=== PATIENT | male | born 1940 | race Caucasian/White ===

== ENCOUNTER 2020-03-10 12:45 | Emergency (ER) | payer MEDICARE, SELFPAY ==
[2020-03-10] VITALS (7 sets, daily range): BP systolic 112–147; BP diastolic 72–104; PULSE 105–127; RESP 22–23; TEMP 36.8–37.1; O2SAT 90–99; BMI 25.9
--- NOTE | 2020-03-10 13:06 | XR_ITS ---
EXAMINATION: XR CHEST CLINICAL INFORMATION: Weakness COMPARISON: Chest x-ray 10/17/2017 TECHNIQUE: Frontal view of the chest was obtained. FINDINGS: Lungs are clear. No focal consolidation or mass. Normal pulmonary vascularity. No pleural effusion or pneumothorax. Tortuous and/or ectatic aorta again seen, similar appearance to the prior study. Normal heart size. There are degenerative changes of the shoulders. XR/XR chest 1V IMPRESSION: No acute pulmonary disease. No significant change from prior study.
--- NOTE | 2020-03-10 13:06 | ECG_ITS ---
Test Reason : SYNCOPE Blood Pressure : / mmHG Vent. Rate : 105 BPM Atrial Rate : 105 BPM P-R Int : 124 ms QRS Dur : 094 ms QT Int : 372 ms P-R-T Axes : 008 007 -06 degrees QTc Int : 491 ms Sinus tachycardia Incomplete right bundle branch block Nonspecific T wave abnormality Inferior leads Anterior leads Abnormal ECG No previous ECGs available Referred By: Joseph West Electronically Signed By:DUSTIN FENG MD
--- NOTE | 2020-03-10 13:06 | CT_ITS ---
EXAMINATION: CT HEAD WITHOUT CONTRAST CLINICAL INFORMATION: Weakness, dizziness COMPARISON: 01/17/2017 TECHNIQUE: Contiguous axial imaging was performed from the skull base to vertex without intravenous administration of contrast. This CT examination was performed using dose optimization techniques as appropriate, variously including the following: *Automated exposure control *Adjustment of mA and/or kV according to patient size (this includes techniques or standardized protocols for targeted exams where dose is matched to indication/reason for exam; i.e. extremities or head) *Use of iterative reconstruction technique DLP: 792 mGy-cm FINDINGS: No intracranial hemorrhage. Again seen is a prominent left frontal extra-axial CSF space consistent with an arachnoid cyst. There is associated thinning and remodeling of the left frontal calvarium and mild mass effect on the left frontal cortex, previously as well. This measures 2.1 cm in AP dimension, not significantly changed from prior study. Otherwise, no mass effect or midline shift seen. The ventricles are similar in configuration to the prior study. Mild chronic microvascular white matter ischemic changes are seen, similar to prior. There is a CSF density remote lacunar infarct in the left basal ganglia. Senescent basal ganglia calcifications are present. There is a remote lacunar infarct in the anterior limb of the right internal capsule. No evidence of acute large vessel territory ischemia. 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 No acute sinusitis. The globes and orbits are normal. CT/CT head/brain wo con IMPRESSION: No acute intracranial abnormality. Similar appearance of left frontal convexity arachnoid cyst. Similar appearance of age-appropriate microvascular white matter ischemic changes and remote prior lacunar infarcts.
--- NOTE | 2020-03-10 13:06 | ED.WEAKNESS ---
HPI - Weakness General Chief complaint: Syncope <Luis Alberto Brooks MD - Last Filed: 03/10/20 16:51> Stated complaint: DIZZY AND WEAK TODAY , NEGATIVE STROKE SCALE <Luis Alberto Brooks MD - Last Filed: 03/10/20 16:51> Time Seen by Provider: 03/10/20 13:05 <Luis Alberto Brooks MD - Last Filed: 03/10/20 16:51> Source: EMS <Joseph West NP - Last Filed: 03/10/20 17:28> Mode of arrival: EMS <Joseph West NP - Last Filed: 03/10/20 17:28> Limitations: no limitations <Joseph West NP - Last Filed: 03/10/20 17:28> History of Present Illness HPI Narrative: This is a 79-year-old male with past medical history that is significant for enlarged prostate for which he is on finasteride and history of hypertension he is taking antihypertensive for a very long time aside from this he denies any other medical problems. He presents via EMS today after he has called his daughter to help him as he reports he woke up this morning with feeling generalized weakness. States he niall up at 8 am when to kitchen where he felt weak and return to his bed where he reports passed out in his bed for brief period time he states he awoke and he had defecated and urinated on himself states he got up went to the bathroom to clean/use the bathroom and felt very weak he sat down on the bathroom floor for a hour or so and then after EMS was called and patient brought to emergency room. Patient has no focal neurological findings. EKG for EMS was stable. Hemodynamically stable he is slightly tachy at 0105. He denies any pain or discomfort. No chest pain specifically or headache. He does report slight dizziness throughout the day and feeling weak. He otherwise denies any recent illness. <Joseph West NP - Last Filed: 03/10/20 17:28> Complaint: generalized weakness <Joseph West NP - Last Filed: 03/10/20 17:28> Onset (ago): hour(s) (woke up this am at 8- ) <Joseph West NP - Last Filed: 03/10/20 17:28> Duration: constant <Joseph West NP - Last Filed: 03/10/20 17:28> Location: generalized <Joseph West NP - Last Filed: 03/10/20 17:28> Associated symptoms: denies other symptoms <Joseph West NP - Last Filed: 03/10/20 17:28> Related Data Allergies/Adverse reactions: Allergies Allergy/AdvReac Type Severity Reaction Status Date / Time Statins Support Allergy Unknown Muscle Uncoded 03/10/20 13:06 cramps <Luis Alberto Brooks MD - Last Filed: 03/10/20 16:51> Review of Systems Review of Systems: Constitutional: No Weight loss, No Fever, No Chills, No Night Sweats, No Fatigue, No Malaise ENT/Mouth: No Hearing loss, No Ear Pain, No Nasal Congestion, No Sinus Pain, No Hoarseness, No sore throat, No Rhinorrhea, No Swallowing Difficulty Eyes: No Eye Pain, No Swelling, No Redness, No Foreign Body, No Discharge, No Vision Changes Cardiovascular: No Chest Pain, No SOB, No Dyspnea on Exertion, No Orthopnea, No Edema, No Palpitations Respiratory: No Cough, No Sputum, No Wheezing, No Smoke Exposure, No Dyspnea Gastrointestinal: No Nausea, No Vomiting, No Diarrhea, No Constipation, No abdominal Pain, No Hematochezia, No Melena Genitourinary: no irregular bleeding, No Dysuria, No Urinary Frequency, No Hematuria, No Urinary Incontinence, No Urgency, No Flank Pain, No Urinary Flow Changes, No Hesitancy Musculoskeletal: No joint pain, No Myalgias, No Joint Swelling Skin: No Skin Lesions, No rash Neuro: No Weakness, No Numbness, No Paresthesias, No Loss of Consciousness, + Dizziness, No Headache, + generalized weakness Psych: No Anxiety/Panic, No Depression, No SI/HI/AH/VH, No Social Issues, Heme/Lymph: No Bruising, No Bleeding,No Lymphadenopathy Endocrine: No Polyuria, No Polydipsia, No Temperature Intolerance <Joseph West NP - Last Filed: 03/10/20 17:28> Yes all other systems are reviewed and are negative <Joseph West NP - Last Filed: 03/10/20 17:28> [facility] Past Medical History Medical History: Medical History Enlarged prostate HTN (hypertension) <Luis Alberto Brooks MD - Last Filed: 03/10/20 16:51> Social History Social History: Social History Alcohol intake: unknown Smoking Status: Never smoker Smoked in Last 30 Days: No Use of substances other than those prescribed or required for medical reasons: No Advance Directives: No Advance Directives Information Provided: No <Luis Alberto Brooks MD - Last Filed: 03/10/20 16:51> Physical Exam Vital Signs: Vital Signs: Last Vital Signs Temp 98.3 F 03/10/20 13:25 Pulse 106 H 03/10/20 13:25 Resp 22 H 03/10/20 13:25 BP 121/95 H 03/10/20 13:25 Pulse Ox 95 03/10/20 13:25 Body Mass Index 25.9 <Luis Alberto Brooks MD - Last Filed: 03/10/20 16:51> Vital Signs: Last Vital Signs Temp 98.3 F 03/10/20 13:25 Pulse 106 H 03/10/20 13:25 Resp 22 H 03/10/20 13:25 BP 121/95 H 03/10/20 13:25 Pulse Ox 95 03/10/20 13:25 Body Mass Index 25.9 Reviewed <Joseph West NP - Last Filed: 03/10/20 17:28> Const: General: cooperative and healthy appearing; No acute distress or intoxicated appearing <Joseph West NP - Last Filed: 03/10/20 17:28> Nutritional Appearance: average body habitus <Joseph West NP - Last Filed: 03/10/20 17:28> Orientation/consciousness: patient oriented x3 <Joseph West NP - Last Filed: 03/10/20 17:28> HENMT: Head: Yes normal to inspection <Joseph West NP - Last Filed: 03/10/20 17:28> Ears: hearing grossly normal bilaterally <Joseph West NP - Last Filed: 03/10/20 17:28> Eyes: General: appearance normal, both eyes and all related structures <Joseph West, CCNP - Last Filed: 03/10/20 17:28> Visual Dale: normal visual dale by confrontation <[facility], CCNP - Last Filed: 03/10/20 17:28> Neck: Neck: Yes normal visual inspection, No positive Brudzinski's sign, No positive Kernig's sign and No tender <[facility] CCNP - Last Filed: 03/10/20 17:28> Thyroid: Thyroid normal [facility] - Last Filed: 03/10/20 17:28> Chest: Chest palpation & inspection: normal inspection of the chest <[facility], CCNP - Last Filed: 03/10/20 17:28> Resp: Effort & Inspection: normal respiratory effort <[facility], CCNP - Last Filed: 03/10/20 17:28> Cardio: Jugular venous distension: no JVD <[facility], CCNP - Last Filed: 03/10/20 17:28> Rate: tachycardic (105) <[facility], CCNP - Last Filed: 03/10/20 17:28> GI: Inspection: Yes normal to inspection <[facility], CCNP - Last Filed: 03/10/20 17:28> Percussion: Yes normal to percussion [facility] - Last Filed: 03/10/20 17:28> Auscultation: normal bowel sounds <[facility], CCNP - Last Filed: 03/10/20 17:28> : General: Yes no CVA tenderness <[facility] Brett CCNP - Last Filed: 03/10/20 17:28> Back/Spine/Pelvis: Back: no CVA tenderness [facility] - Last Filed: 03/10/20 17:28> Skin: General skin exam: no rashes or lesions noted <[facility] Brett CCNP - Last Filed: 03/10/20 17:28> Neuro: Other: NIH score 0 PERC positive based on age in tachycardia <[facility] CCNP - Last Filed: 03/10/20 17:28> General: patient oriented x3 <[facility] CCNP - Last Filed: 03/10/20 17:28> Extrem: General: Yes normal to inspection <Joseph West NP - Last Filed: 03/10/20 17:28> Course Course Course Narrative: I agree with the history. My physical exam is male coding, CPR in progress, patient intubated, CPR stopped as pulses returned. Will start epi drip <Luis Alberto Brooks MD - Last Filed: 03/10/20 16:51> Interview 79-year-old male who is relatively independent lives at home alone with history of enlarged prostate and hypertension presenting today with complaint of generalized weakness with with what is described as syncopal episode where he passed out in his bed and had lost control of his urinary/bowels. He subsequently felt weak again set on the bathroom floor for an hour or so and then EMS was called. Upon arrival reports slight generalized weakness otherwise no chest pain or shortness of breath no headache does report slight dizziness improved from this morning. He states otherwise he has been doing well and has not had any travels, sick contacts, episodes of chest pain, headache or shortness of breath. He does report that he did do extensive yd work yesterday but most of it involved him riding on his riding lawnmower and picking up leaves. Upon arrival patient is slightly tachy at 105 otherwise hemodynamically stable. No complaint of pain. Does have complaint of generalized weakness. Bedside monitor shows sinus tachycardic EKG on arrival slight tacky as well with RBBB and T-wave inversion in lateral leads. At this time will check labs including CT of the head, chest x-ray, orthostatic vital signs and COVID-19. Differential diagnosis include but not limited to CVA, TIA, ACS, pulmonary embolism, viral syndrome. <Joseph West NP - Last Filed: 03/10/20 17:28> Reevaluation(s) Reevaluation #1: Proper hand hygiene, cap, gown and sterile gloves place worn. Patient prepped and draped in sterile fashion, 1% lidocaine used for anesthesia, sterile US cover used, central line placed using US. Central line 16cm at the neck. Sutured in place <Luis Alberto Brooks MD - Last Filed: 03/10/20 16:51> Patient was resting comfortably and hemodynamically stable went to CT scan of his head and after he had a CT scan done patient was moved into his stretcher and after he was being wheeled back to his room he became unresponsive with agonal breathing I was called over to bedside. Found patient to have rhythm that was progressively going to bradycardic with no pulses. CPR was initiated and patient remained PA for about 5 minutes. Patient was given round of epi. He regained consciousness and appeared uncomfortable from the compressions on his chest reporting pain in the ?ribs? bedside rhythm revealed tachycardia with frequent PVC. He denies any chest pain or shortness of breath or headache prior to this and no headache. Soon after this he again went into agonal breathing and bedside monitor revealed heart rhythm went from 130's tachy down to 40s no pulse and CPR was initiated again. Patient was intubated following RSI protocol for airway protection and CPR continued again for about 8 times again - requiring multiple rounds of epinephrine and epinephrine drip. In the meantime I was in consultation with attending Dr. Brooks who was at bedside with me duration of the time, medicaid specialist Dr. Moore as well as Cardiology Dr. Mcgee. In addition to this daughter Mary was present for the duration of these episodes and closely consulted as to the wishes per the family given that patient is in critical condition with grim prognosis- she did express that at this time she wanted to continue CPR until she consult with her brother and sister but patient had mention that he did not want any invasive procedures in the prior discussions however there is no formal documentation of this. Given his workup that revealed elevated troponin and elevated D-dimer high suspicion for PE daughter agree to tPA with understanding that could lead to worsening condition bleeding and . This was reviewed with her by both myself Cardiology and medicaid specialist. Patient subsequently continued to have episodes of PE a requiring CPR and was determined by the family to stop CPR. Please refer to their documentation for duration of the code which lasted from 1300-16 20. Total over 2-1/2 hours were spent at bedside performing critical care including intubation by me, central line and management of multiple critical care medications. Patient was pronounced at 1620 by medicaid specialist. <Joseph West NP - Last Filed: 03/10/20 17:28> Consultations Consultation #1: [id number] Moore <Joseph West NP - Last Filed: 03/10/20 17:28> Consultation #2: [id number] Everardo Bedside Echo <Joseph West NP - Last Filed: 03/10/20 17:28> Procedures Intubation Time out performed: Yes <Joseph West NP - Last Filed: 03/10/20 17:28> sedative: Versed <Joseph West NP - Last Filed: 03/10/20 17:28> paralytic: Succinylcholine <Joseph West NP - Last Filed: 03/10/20 17:28> Laryngoscope: fiber optic video scope <Joseph West NP - Last Filed: 03/10/20 17:28> ET Tube Size: 8 <Joseph West NP - Last Filed: 03/10/20 17:28> ET Tube Uncuffed: Yes <Joseph West NP - Last Filed: 03/10/20 17:28> Tube Secured Depth (cm): 24 <Joseph West NP - Last Filed: 03/10/20 17:28> Tube Secured Location: lips <Joseph West NP - Last Filed: 03/10/20 17:28> Tube Placement Confirmation: visualized tube passing through cords, equal breath sounds bilaterally and confirmation by capnometry <Joseph West NP - Last Filed: 03/10/20 17:28> Patient Tolerated Procedure: well <Joseph West NP - Last Filed: 03/10/20 17:28> Intubation Complications: none <Joseph West NP - Last Filed: 03/10/20 17:28> Pulse Oximetry Interpretation Forehead: Actions Taken: intubated <Joseph West NP - Last Filed: 03/10/20 17:28> Additional Comments: 98% <Joseph West NP - Last Filed: 03/10/20 17:28> MDM - Weakness Medical Records Attestation: I reviewed the patient's medical records. <Joseph West NP - Last Filed: 03/10/20 17:28> Lab Data Attestation: I reviewed the patient's lab results. <Joseph West NP - Last Filed: 03/10/20 17:28> Result diagrams: : 03/10/20 13:44 03/10/20 13:44 <Luis Alberto Brooks MD - Last Filed: 03/10/20 16:51> Labs: Lab Results 03/10/20 03/10/20 03/10/20 Range/Units 13:44 13:44 13:44 WBC 10.3 (4.8-10.8) X10*3/uL RBC 4.63 (4.60-5.80) X10*6/uL Hgb 15.3 (14.0-18.0) g/dl Hct 45.7 (42-52) % MCV 98.7 H (80-98) fL MCH 33.0 (27.0-33.0) pg MCHC 33.5 (31.0-36.0) g/dl RDW 12.3 (11.0-16.0) % Plt Count 190 (160-400) X10*3/uL MPV 8.6 L (9.4-12.4) fL Immature Gran % (Auto) 0.4 (0.0-0.4) % Neut % (Auto) 89.6 H (45-73) % Lymph % (Auto) 5.4 L (20-40) % [place] % (Auto) 4.0 (2-11) % Eos % (Auto) 0.1 (0-4) % Baso % (Auto) 0.5 (0-2) % Lymph # (Auto) 0.6 L (1.2-4.9) X10*3/uL [place] # (Auto) 0.4 (0.1-1.2) X10*3/uL Eos # (Auto) 0.0 (0.0-0.4) X10*3/uL Baso # (Auto) 0.1 (0.0-0.2) X10*3/uL Abs Immat Gran (auto) 0.04 H (0.00-0.03) X10*3/uL Absolute Neuts (auto) 9.2 H (2.0-8.3) X10*3/uL Absolute Nucleated RBC 0.000 (0.0-0.012) X10*3/uL Nucleated RBC % (auto) 0.0 (0.0-0.2) /100WBC Smear Tech's Comments VERIFIED PT 12.4 (10.8-13.0) SEC INR 1.0 (0.9-1.1) APTT 29.7 (24.1-38.0) SEC D-Dimer NG/ML Sodium 140 (135-145) mmol/L Potassium 4.6 (3.3-5.1) mmol/l Chloride 105 (96-108) mmol/L Carbon Dioxide 24 (22-29) mmol/L Anion Gap 16 (12-20) BUN 14 (9-16) mg/dL Creatinine 0.97 (0.5-1.4) mg/dL Estim Creat Clear Calc 60.7 Estimated GFR > 60 POC Glucose (60-115) mg/dL Random Glucose 144 H (60-115) mg/dL Calcium 8.7 (8.4-10.2) mg/dL Magnesium 2.2 (1.6-2.6) mg/dL Total Bilirubin 0.8 (0.0-1.0) mg/dL AST 32 (5-37) U/L ALT 21 (0-40) U/L Alkaline Phosphatase 120 H (39-117) U/L Lactate Dehydrogenase (118-273) U/L Troponin I High Sens (<3.5-35.0) ng/L Total Protein 7.1 (6.5-8.0) g/dL Albumin 4.2 (3.5-5.0) g/dL Procalcitonin ng/mL COVID-19 ([facility]) (Negative) COVID-19 Clin Com 03/10/20 03/10/20 03/10/20 Range/Units 13:44 13:44 13:44 WBC (4.8-10.8) X10*3/uL RBC (4.60-5.80) X10*6/uL Hgb (14.0-18.0) g/dl Hct (42-52) % MCV (80-98) fL MCH (27.0-33.0) pg MCHC (31.0-36.0) g/dl RDW (11.0-16.0) % Plt Count (160-400) X10*3/uL MPV (9.4-12.4) fL Immature Gran % (Auto) (0.0-0.4) % Neut % (Auto) (45-73) % Lymph % (Auto) (20-40) % [place] % (Auto) (2-11) % Eos % (Auto) (0-4) % Baso % (Auto) (0-2) % Lymph # (Auto) (1.2-4.9) X10*3/uL [place] # (Auto) (0.1-1.2) X10*3/uL Eos # (Auto) (0.0-0.4) X10*3/uL Baso # (Auto) (0.0-0.2) X10*3/uL Abs Immat Gran (auto) (0.00-0.03) X10*3/uL Absolute Neuts (auto) (2.0-8.3) X10*3/uL Absolute Nucleated RBC (0.0-0.012) X10*3/uL Nucleated RBC % (auto) (0.0-0.2) /100WBC Smear Tech's Comments PT (10.8-13.0) SEC INR (0.9-1.1) APTT (24.1-38.0) SEC D-Dimer 2355 NG/ML Sodium (135-145) mmol/L Potassium (3.3-5.1) mmol/l Chloride (96-108) mmol/L Carbon Dioxide (22-29) mmol/L Anion Gap (12-20) BUN (9-16) mg/dL Creatinine (0.5-1.4) mg/dL Estim Creat Clear Calc Estimated GFR POC Glucose (60-115) mg/dL Random Glucose (60-115) mg/dL Calcium (8.4-10.2) mg/dL Magnesium (1.6-2.6) mg/dL Total Bilirubin (0.0-1.0) mg/dL AST (5-37) U/L ALT (0-40) U/L Alkaline Phosphatase (39-117) U/L Lactate Dehydrogenase (118-273) U/L Troponin I High Sens 818.4 H (<3.5-35.0) ng/L Total Protein (6.5-8.0) g/dL Albumin (3.5-5.0) g/dL Procalcitonin ng/mL COVID-19 ([facility]) Negative (Negative) COVID-19 Clin Com See Note 03/10/20 03/10/20 03/10/20 Range/Units 13:44 13:44 14:22 WBC (4.8-10.8) X10*3/uL RBC (4.60-5.80) X10*6/uL Hgb (14.0-18.0) g/dl Hct (42-52) % MCV (80-98) fL MCH (27.0-33.0) pg MCHC (31.0-36.0) g/dl RDW (11.0-16.0) % Plt Count (160-400) X10*3/uL MPV (9.4-12.4) fL Immature Gran % (Auto) (0.0-0.4) % Neut % (Auto) (45-73) % Lymph % (Auto) (20-40) % [place] % (Auto) (2-11) % Eos % (Auto) (0-4) % Baso % (Auto) (0-2) % Lymph # (Auto) (1.2-4.9) X10*3/uL [place] # (Auto) (0.1-1.2) X10*3/uL Eos # (Auto) (0.0-0.4) X10*3/uL Baso # (Auto) (0.0-0.2) X10*3/uL Abs Immat Gran (auto) (0.00-0.03) X10*3/uL Absolute Neuts (auto) (2.0-8.3) X10*3/uL Absolute Nucleated RBC (0.0-0.012) X10*3/uL Nucleated RBC % (auto) (0.0-0.2) /100WBC Smear Tech's Comments PT (10.8-13.0) SEC INR (0.9-1.1) APTT (24.1-38.0) SEC D-Dimer NG/ML Sodium (135-145) mmol/L Potassium (3.3-5.1) mmol/l Chloride (96-108) mmol/L Carbon Dioxide (22-29) mmol/L Anion Gap (12-20) BUN (9-16) mg/dL Creatinine (0.5-1.4) mg/dL Estim Creat Clear Calc Estimated GFR POC Glucose 115 (60-115) mg/dL Random Glucose (60-115) mg/dL Calcium (8.4-10.2) mg/dL Magnesium (1.6-2.6) mg/dL Total Bilirubin (0.0-1.0) mg/dL AST (5-37) U/L ALT (0-40) U/L Alkaline Phosphatase (39-117) U/L Lactate Dehydrogenase 284 H (118-273) U/L Troponin I High Sens (<3.5-35.0) ng/L Total Protein (6.5-8.0) g/dL Albumin (3.5-5.0) g/dL Procalcitonin 0.03 ng/mL COVID-19 ([facility]) (Negative) COVID-19 Clin Com 03/10/20 Range/Units 14:40 WBC (4.8-10.8) X10*3/uL RBC (4.60-5.80) X10*6/uL Hgb (14.0-18.0) g/dl Hct (42-52) % MCV (80-98) fL MCH (27.0-33.0) pg MCHC (31.0-36.0) g/dl RDW (11.0-16.0) % Plt Count (160-400) X10*3/uL MPV (9.4-12.4) fL Immature Gran % (Auto) (0.0-0.4) % Neut % (Auto) (45-73) % Lymph % (Auto) (20-40) % [place] % (Auto) (2-11) % Eos % (Auto) (0-4) % Baso % (Auto) (0-2) % Lymph # (Auto) (1.2-4.9) X10*3/uL [place] # (Auto) (0.1-1.2) X10*3/uL Eos # (Auto) (0.0-0.4) X10*3/uL Baso # (Auto) (0.0-0.2) X10*3/uL Abs Immat Gran (auto) (0.00-0.03) X10*3/uL Absolute Neuts (auto) (2.0-8.3) X10*3/uL Absolute Nucleated RBC (0.0-0.012) X10*3/uL Nucleated RBC % (auto) (0.0-0.2) /100WBC Smear Tech's Comments PT (10.8-13.0) SEC INR (0.9-1.1) APTT (24.1-38.0) SEC D-Dimer NG/ML Sodium (135-145) mmol/L Potassium (3.3-5.1) mmol/l Chloride (96-108) mmol/L Carbon Dioxide (22-29) mmol/L Anion Gap (12-20) BUN (9-16) mg/dL Creatinine (0.5-1.4) mg/dL Estim Creat Clear Calc Estimated GFR POC Glucose 154 H (60-115) mg/dL Random Glucose (60-115) mg/dL Calcium (8.4-10.2) mg/dL Magnesium (1.6-2.6) mg/dL Total Bilirubin (0.0-1.0) mg/dL AST (5-37) U/L ALT (0-40) U/L Alkaline Phosphatase (39-117) U/L Lactate Dehydrogenase (118-273) U/L Troponin I High Sens (<3.5-35.0) ng/L Total Protein (6.5-8.0) g/dL Albumin (3.5-5.0) g/dL Procalcitonin ng/mL COVID-19 ([facility]) (Negative) COVID-19 Clin Com <Luis Alberto Brooks MD - Last Filed: 03/10/20 16:51> Lab Results 03/10/20 03/10/20 03/10/20 Range/Units 13:44 13:44 13:44 WBC 10.3 (4.8-10.8) X10*3/uL RBC 4.63 (4.60-5.80) X10*6/uL Hgb 15.3 (14.0-18.0) g/dl Hct 45.7 (42-52) % MCV 98.7 H (80-98) fL MCH 33.0 (27.0-33.0) pg MCHC 33.5 (31.0-36.0) g/dl RDW 12.3 (11.0-16.0) % Plt Count 190 (160-400) X10*3/uL MPV 8.6 L (9.4-12.4) fL Immature Gran % (Auto) 0.4 (0.0-0.4) % Neut % (Auto) 89.6 H (45-73) % Lymph % (Auto) 5.4 L (20-40) % [place] % (Auto) 4.0 (2-11) % Eos % (Auto) 0.1 (0-4) % Baso % (Auto) 0.5 (0-2) % Lymph # (Auto) 0.6 L (1.2-4.9) X10*3/uL [place] # (Auto) 0.4 (0.1-1.2) X10*3/uL Eos # (Auto) 0.0 (0.0-0.4) X10*3/uL Baso # (Auto) 0.1 (0.0-0.2) X10*3/uL Abs Immat Gran (auto) 0.04 H (0.00-0.03) X10*3/uL Absolute Neuts (auto) 9.2 H (2.0-8.3) X10*3/uL Absolute Nucleated RBC 0.000 (0.0-0.012) X10*3/uL Nucleated RBC % (auto) 0.0 (0.0-0.2) /100WBC Smear Tech's Comments VERIFIED PT 12.4 (10.8-13.0) SEC INR 1.0 (0.9-1.1) APTT 29.7 (24.1-38.0) SEC D-Dimer NG/ML Sodium 140 (135-145) mmol/L Potassium 4.6 (3.3-5.1) mmol/l Chloride 105 (96-108) mmol/L Carbon Dioxide 24 (22-29) mmol/L Anion Gap 16 (12-20) BUN 14 (9-16) mg/dL Creatinine 0.97 (0.5-1.4) mg/dL Estim Creat Clear Calc 60.7 Estimated GFR > 60 POC Glucose (60-115) mg/dL Random Glucose 144 H (60-115) mg/dL Calcium 8.7 (8.4-10.2) mg/dL Magnesium 2.2 (1.6-2.6) mg/dL Total Bilirubin 0.8 (0.0-1.0) mg/dL AST 32 (5-37) U/L ALT 21 (0-40) U/L Alkaline Phosphatase 120 H (39-117) U/L Lactate Dehydrogenase (118-273) U/L Troponin I High Sens (<3.5-35.0) ng/L Total Protein 7.1 (6.5-8.0) g/dL Albumin 4.2 (3.5-5.0) g/dL Procalcitonin ng/mL COVID-19 ([facility]) (Negative) COVID-19 Clin Com 03/10/20 03/10/20 03/10/20 Range/Units 13:44 13:44 13:44 WBC (4.8-10.8) X10*3/uL RBC (4.60-5.80) X10*6/uL Hgb (14.0-18.0) g/dl Hct (42-52) % MCV (80-98) fL MCH (27.0-33.0) pg MCHC (31.0-36.0) g/dl RDW (11.0-16.0) % Plt Count (160-400) X10*3/uL MPV (9.4-12.4) fL Immature Gran % (Auto) (0.0-0.4) % Neut % (Auto) (45-73) % Lymph % (Auto) (20-40) % [place] % (Auto) (2-11) % Eos % (Auto) (0-4) % Baso % (Auto) (0-2) % Lymph # (Auto) (1.2-4.9) X10*3/uL [place] # (Auto) (0.1-1.2) X10*3/uL Eos # (Auto) (0.0-0.4) X10*3/uL Baso # (Auto) (0.0-0.2) X10*3/uL Abs Immat Gran (auto) (0.00-0.03) X10*3/uL Absolute Neuts (auto) (2.0-8.3) X10*3/uL Absolute Nucleated RBC (0.0-0.012) X10*3/uL Nucleated RBC % (auto) (0.0-0.2) /100WBC Smear Tech's Comments PT (10.8-13.0) SEC INR (0.9-1.1) APTT (24.1-38.0) SEC D-Dimer 2355 NG/ML Sodium (135-145) mmol/L Potassium (3.3-5.1) mmol/l Chloride (96-108) mmol/L Carbon Dioxide (22-29) mmol/L Anion Gap (12-20) BUN (9-16) mg/dL Creatinine (0.5-1.4) mg/dL Estim Creat Clear Calc Estimated GFR POC Glucose (60-115) mg/dL Random Glucose (60-115) mg/dL Calcium (8.4-10.2) mg/dL Magnesium (1.6-2.6) mg/dL Total Bilirubin (0.0-1.0) mg/dL AST (5-37) U/L ALT (0-40) U/L Alkaline Phosphatase (39-117) U/L Lactate Dehydrogenase (118-273) U/L Troponin I High Sens 818.4 H (<3.5-35.0) ng/L Total Protein (6.5-8.0) g/dL Albumin (3.5-5.0) g/dL Procalcitonin ng/mL COVID-19 ([facility]) Negative (Negative) COVID-19 Clin Com See Note 03/10/20 03/10/20 03/10/20 Range/Units 13:44 13:44 14:22 WBC (4.8-10.8) X10*3/uL RBC (4.60-5.80) X10*6/uL Hgb (14.0-18.0) g/dl Hct (42-52) % MCV (80-98) fL MCH (27.0-33.0) pg MCHC (31.0-36.0) g/dl RDW (11.0-16.0) % Plt Count (160-400) X10*3/uL MPV (9.4-12.4) fL Immature Gran % (Auto) (0.0-0.4) % Neut % (Auto) (45-73) % Lymph % (Auto) (20-40) % [place] % (Auto) (2-11) % Eos % (Auto) (0-4) % Baso % (Auto) (0-2) % Lymph # (Auto) (1.2-4.9) X10*3/uL [place] # (Auto) (0.1-1.2) X10*3/uL Eos # (Auto) (0.0-0.4) X10*3/uL Baso # (Auto) (0.0-0.2) X10*3/uL Abs Immat Gran (auto) (0.00-0.03) X10*3/uL Absolute Neuts (auto) (2.0-8.3) X10*3/uL Absolute Nucleated RBC (0.0-0.012) X10*3/uL Nucleated RBC % (auto) (0.0-0.2) /100WBC Smear Tech's Comments PT (10.8-13.0) SEC INR (0.9-1.1) APTT (24.1-38.0) SEC D-Dimer NG/ML Sodium (135-145) mmol/L Potassium (3.3-5.1) mmol/l Chloride (96-108) mmol/L Carbon Dioxide (22-29) mmol/L Anion Gap (12-20) BUN (9-16) mg/dL Creatinine (0.5-1.4) mg/dL Estim Creat Clear Calc Estimated GFR POC Glucose 115 (60-115) mg/dL Random Glucose (60-115) mg/dL Calcium (8.4-10.2) mg/dL Magnesium (1.6-2.6) mg/dL Total Bilirubin (0.0-1.0) mg/dL AST (5-37) U/L ALT (0-40) U/L Alkaline Phosphatase (39-117) U/L Lactate Dehydrogenase 284 H (118-273) U/L Troponin I High Sens (<3.5-35.0) ng/L Total Protein (6.5-8.0) g/dL Albumin (3.5-5.0) g/dL Procalcitonin 0.03 ng/mL COVID-19 ([facility]) (Negative) COVID-19 Clin Com 03/10/20 Range/Units 14:40 WBC (4.8-10.8) X10*3/uL RBC (4.60-5.80) X10*6/uL Hgb (14.0-18.0) g/dl Hct (42-52) % MCV (80-98) fL MCH (27.0-33.0) pg MCHC (31.0-36.0) g/dl RDW (11.0-16.0) % Plt Count (160-400) X10*3/uL MPV (9.4-12.4) fL Immature Gran % (Auto) (0.0-0.4) % Neut % (Auto) (45-73) % Lymph % (Auto) (20-40) % [place] % (Auto) (2-11) % Eos % (Auto) (0-4) % Baso % (Auto) (0-2) % Lymph # (Auto) (1.2-4.9) X10*3/uL [place] # (Auto) (0.1-1.2) X10*3/uL Eos # (Auto) (0.0-0.4) X10*3/uL Baso # (Auto) (0.0-0.2) X10*3/uL Abs Immat Gran (auto) (0.00-0.03) X10*3/uL Absolute Neuts (auto) (2.0-8.3) X10*3/uL Absolute Nucleated RBC (0.0-0.012) X10*3/uL Nucleated RBC % (auto) (0.0-0.2) /100WBC Smear Tech's Comments PT (10.8-13.0) SEC INR (0.9-1.1) APTT (24.1-38.0) SEC D-Dimer NG/ML Sodium (135-145) mmol/L Potassium (3.3-5.1) mmol/l Chloride (96-108) mmol/L Carbon Dioxide (22-29) mmol/L Anion Gap (12-20) BUN (9-16) mg/dL Creatinine (0.5-1.4) mg/dL Estim Creat Clear Calc Estimated GFR POC Glucose 154 H (60-115) mg/dL Random Glucose (60-115) mg/dL Calcium (8.4-10.2) mg/dL Magnesium (1.6-2.6) mg/dL Total Bilirubin (0.0-1.0) mg/dL AST (5-37) U/L ALT (0-40) U/L Alkaline Phosphatase (39-117) U/L Lactate Dehydrogenase (118-273) U/L Troponin I High Sens (<3.5-35.0) ng/L Total Protein (6.5-8.0) g/dL Albumin (3.5-5.0) g/dL Procalcitonin ng/mL COVID-19 ([facility]) (Negative) COVID-19 Clin Com <Joseph West NP - Last Filed: 03/10/20 17:28> Discharge Plan Discharge Clinical Impression: Cardiac arrest, Syncope <Luis Alberto Brooks MD - Last Filed: 03/10/20 16:51> Patient Disposition: <Luis Alberto Brooks MD - Last Filed: 03/10/20 16:51> Date/Time: 03/10/20 16:20 <Luis Alberto Brooks MD - Last Filed: 03/10/20 16:51>
[2020-03-10] MEDS: 0.9 % Sodium Chloride 500 ML 1000 ML IV (13:52)
[2020-03-10 13:56] LABS: Basophils Absolute Auto 0.1 X10*3/uL (0.0-0.2); Basophils Percent Auto 0.5 % (0-2); Eosinophils Percent Auto 0.1 % (0-4); Hematocrit 45.7 % (42-52); Hemoglobin 15.3 g/dl (14.0-18.0); Imm Gran Abs Auto 0.04 X10*3/uL (0.00-0.03); Imm Gran Pct Auto 0.4 % (0.0-0.4); Lymphocytes Absolute Auto 0.6 X10*3/uL (1.2-4.9); Lymphocytes Percent Auto 5.4 % (20-40); MANUAL DIFF FLAG SCAN; Mean Corpuscular HGB Conc 33.5 g/dl (31.0-36.0); Mean Corpuscular Volume 98.7 fL (80-98); Mean Platelet Volume 8.6 fL (9.4-12.4); Monocytes Absolute Auto 0.4 X10*3/uL (0.1-1.2); Neutrophils Absolute Auto 9.2 X10*3/uL (2.0-8.3); Neutrophils Percent Auto 89.6 % (45-73); Platelet Count 190 X10*3/uL (160-400); Red Blood Count 4.63 X10*6/uL (4.60-5.80); Red Cell Distribution Width 12.3 % (11.0-16.0); SCAN SMEAR FLAG 1; White Blood Count 10.3 X10*3/uL (4.8-10.8)
[2020-03-10 14:00] LABS: Prothrombin Time 12.4 SEC (10.8-13.0)
[2020-03-10 14:03] LABS: Partial Thromboplastin Time 29.7 SEC (24.1-38.0)
[2020-03-10 14:10] LABS: D Dimer 2355 NG/ML
[2020-03-10 14:16] LABS: Lactate Dehydrogenase 284 U/L (118-273)
[2020-03-10 14:18] LABS: Alanine Aminotransferase 21 U/L (0-40); Albumin Level 4.2 g/dL (3.5-5.0); Alkaline Phosphatase 120 U/L (39-117); Anion Gap 16 (12-20); Aspartate Amino Transferase 32 U/L (5-37); Bilirubin Total 0.8 mg/dL (0.0-1.0); Blood Urea Nitrogen 14 mg/dL (9-16); Calcium 8.7 mg/dL (8.4-10.2); Carbon Dioxide 24 mmol/L (22-29); Chloride 105 mmol/L (96-108); Creatinine Clr Calc Pharmacy 60.7; Estimated Glomerular Filt Rate > 60; Glucose Random 144 mg/dL (60-115); Magnesium 2.2 mg/dL (1.6-2.6); Potassium 4.6 mmol/l (3.3-5.1); Sodium 140 mmol/L (135-145); Total Protein 7.1 g/dL (6.5-8.0)
--- NOTE | 2020-03-10 14:26 | ECG_ITS ---
Test Reason : CARDIAC ARREST Blood Pressure : / mmHG Vent. Rate : 139 BPM Atrial Rate : 139 BPM P-R Int : 130 ms QRS Dur : 124 ms QT Int : 306 ms P-R-T Axes : -16 050 -10 degrees QTc Int : 465 ms Sinus tachycardia Right bundle branch block Nonspecific T wave abnormality Abnormal ECG When compared with ECG of 10-MAR-2020 13:26, Right bundle branch block has replaced Incomplete right bundle branch block Heart rate has increased Referred By: Joseph West Electronically Signed By:DUSTIN FENG MD
[2020-03-10 14:29] LABS: Troponin-I High Sensitivity 818.4 ng/L (<3.5-35.0)
[2020-03-10 14:30] LABS: SLIDE REVIEW VERIFIED
[2020-03-10 14:32] LABS: Glucose, Whole Blood 115 mg/dL (60-115)
[2020-03-10 14:35] LABS: COVID-19 Test Negative (Negative)
[2020-03-10 14:47] LABS: Glucose, Whole Blood 154 mg/dL (60-115)
[2020-03-10] MEDS: ondansetron HCL 4 MG/2 ML VIAL IVPUSH (14:55)
--- NOTE | 2020-03-10 15:05 | CA_ITS ---
Transthoracic Echocardiogram Patient (Last, First, Middle): Juan Walker A Gender: Male Date of : 1940 Age: 79 Procedure Date: 03/10/2020 Procedure Type: Transthoracic Echocardiogram Location: ER Height: 175.26 cm Weight: 79.38 kg BSA: 1.95 m2 Heart Rate: bpm BP: 105 / 60 mmHg Senior Contracts Manager: TRAY Referring MD: Joseph West NP Motion Pictures Cartoonist: Ede Mcgee MD Symptoms: TPA/cardiac arrest Study Quality: Technically Difficult ECG Rhythm: Sinus tachycardia Conclusions: - 1. Technically limited study with only subcostal view could be obtained 2. Severely dilated RV with severely reduced RV systolic function with sparing of the apex consistent with acute cor pulmonale. LV systolic function appears to be normal 3. Wviv-lv-tawgiric TR 4. Mildly elevated right ventricular systolic pressure with severely elevated right atrial pressure 5. No gross pericardial effusion Findings Left Ventricle Normal left ventricular cavity size. There is normal left ventricular wall thickness. The left ventricular systolic function is normal. The visually estimated ejection fraction is between 55-60%. There is a flattened septum in systole consistent with right ventricular pressure overload. Diastolic function is indeterminate on the basis of available data. there are no clear regional wall motion abnormalities noted Right Ventricle Severely increased right ventricular cavity size. There is severely decreased right ventricular systolic function. The right ventricular free wall is akinetic and the apex is normal. Free wall akinesis with apical sparing c/w Orosco's sign, c/w acute cor pulmonale. These findings are seen usually with massive PE Atria The left atrium is normal in size. The right atrium is mildly dilated. Aortic Valve The aortic valve structure and function is likely normal. There is no aortic valve regurgitation. Mitral Valve Normal mitral valve structure and function. There is trace mitral valve regurgitation. There is no mitral valve stenosis. Pulmonic Valve The pulmonic valve was not well visualized. Tricuspid Valve Normal tricuspid valve structure. There is mild to moderate tricuspid valve regurgitation. Significantly elevated right atrial pressure. Mild pulmonary hypertension is present. Great Vessels The aorta was not well visualized. The pulmonary artery was not well visualized. Venous The inferior vena cava is moderately dilated and does not collapse with inspiration. Pericardium/Pleural There is no evidence of pericardial effusion. Prior Study Comparison No prior study available for comparison. Measurements 2D Linear Measurements IVSd: 1.01 0.6-0.9/0.6-1.0 cm LVIDd: 2.60 3.9-5.3/4.2-5.9 cm LVIDs: 1.57 2.0-3.6 cm LVPWd: 0.99 0.7-1.1 cm LA Diam: 3.70 2.7-3.8/3.0-4.0 cm LV Mass: 83.15 67-162/88-224 g Tricuspid Valve TR Pk Storm: 2.66 TR Pk Grad: 28.00 RA Press: 15.00 RVSP: 43.00 Updated in Other Vendor System with Status of Final Ede Mcgee MD electronically signed on 03/10/2020 4:40:30 PM with status of Final
[2020-03-10 15:28] LABS: Procalcitonin 0.03 ng/mL
[2020-03-10] MEDS: fentaNYL citrate/PF 100 MCG/2 ML VIAL 50 MCG IVPUSH ×2 (15:33→15:40)
--- NOTE | 2020-03-10 16:23 | PM.CCN ---
Critical Care Event Note Summary Code activated: No Narrative: 79-year-old gentleman with underlying history of BPH and hypertension evaluated in the emergency room for complaints of weakness and dizziness sustainedinitially bradycardic cardiopulmonary arrest at 13:00, with multiple times achieving return of spontaneous circulation and then again deteriorating into cardiopulmonary arrest bradycardic or PEA over the approximately next 180 minutes. intubated during the initial CPR, central venous access placed. Right ventricle dilated with dilated IVC on bedside echocardiography and only right bundle-branch block physiology on ECG. Most likely etiology - acute cor pulmonale with pulmonary embolism. Tissue plasminogen activator given as a last ditch effort with no improvement. Patient continued to sustain recurrent cardiac arrests. Inability to maintain spontaneous circulation discussed with patient's daughter and decision has been reached to stop CPR. CPR stopped at 4:20 p.m. Patient pronounced by me at that time (4:20pm). Family at the bedside. Critical Care Time (minutes): 60
--- NOTE | 2020-03-10 16:49 | P.CONCA_ITS ---
History of Present Illness History of Present Illness Date of Consult: March 10, 2020 Requesting physician: Joseph West Chief complaint: DIZZY AND WEAK TODAY , NEGATIVE STROKE SCALE Narrative: I was requested to come in for consultation on this 79-year-old gentleman who came with symptoms of dizziness and weakness and possible syncopal episode at home. Initial symptoms were concerning for TIA. Patient was noted to have sinus tachycardia. He was alert and lucid when he came in. Her subsequently after coming back from CT scan he had a cardiac arrest with bradycardia. Initially felt bradycardia was causing his cardiac arrest. However subsequently he was noted to have normal sinus rhythm with lack of pulse consistent with pulseless electrical activity. Cause of this initially was not apparent. EKG showed sinus tachycardia with right bundle-branch block with S1 Q 3 T3 pattern. He continue to have recurrent episodes of cardiac arrest requiring recurrent CPR. He was then started on epinephrine drip and for short period time was maintaining his heart rate and blood pressure. He was then intubated for airway protection and with continued recurrent cardiac arrest episodes Requiring CPR. Endotracheal tube showed some blood tinged secretions. bedside echocardiogram briefly showed severely dilated RV with hypokinesis consistent with acute cor pulmonale. There was with elevated D-dimer and slightly elevated troponin, findings widely consistent with massive pulmonary embolism. Prior to these episodes when patient was [place] at not complain of any chest pain or shortness of breath. Review of Systems Review of Systems: Yes unobtainable due to endotracheal tube and Unobtainable due to mental condition PMFSH Past Medical History Medical History Enlarged prostate HTN (hypertension) Social History Social History Alcohol intake: unknown Smoking Status: Never smoker Smoked in Last 30 Days: No Use of substances other than those prescribed or required for medical reasons: No Advance Directives: No Advance Directives Information Provided: No Meds Allergies Allergy/AdvReac Type Severity Reaction Status Date / Time Statins Support Allergy Unknown Muscle Uncoded 03/10/20 13:06 cramps Physical Exam Vital Signs: Vital Signs: Last Vital Signs Temp 98.3 F 03/10/20 13:25 Pulse 106 H 03/10/20 13:25 Resp 22 H 03/10/20 13:25 BP 121/95 H 03/10/20 13:25 Pulse Ox 95 03/10/20 13:25 Body Mass Index 25.9 Const: Other: Patient intubated and sedated and on a ventilator HENMT: Other: overall dusky appearance Head: Yes normocephalic and Yes atraumatic Eyes: General: appearance normal, both eyes and all related structures Neck: Neck: Yes trachea midline and Yes no JVD Chest: Chest palpation & inspection: normal inspection of the chest Resp: Effort & Inspection: normal respiratory effort Auscultation: clear to auscultation bilaterally and diminished lung sounds Cardio: Palpation: heave Rate: regular rate and tachycardic Rhythm: regular rhythm Heart sounds: S1 normal heart sound present GI: Auscultation: Hypoactive bowel sounds present Skin: General skin exam: no rashes or lesions noted Neuro: Other: could not be checked Extrem: General: Yes no clubbing, cyanosis or edema Results Labs and Meds Result diagrams: 03/10/20 13:44 03/10/20 13:44 Lab results: Laboratory Results - last 24 hr 03/10/20 03/10/20 03/10/20 13:44 13:44 13:44 WBC 10.3 RBC 4.63 Hgb 15.3 Hct 45.7 MCV 98.7 H MCH 33.0 MCHC 33.5 RDW 12.3 Plt Count 190 MPV 8.6 L Immature Gran % (Auto) 0.4 Neut % (Auto) 89.6 H Lymph % (Auto) 5.4 L [place] % (Auto) 4.0 Eos % (Auto) 0.1 Baso % (Auto) 0.5 Lymph # (Auto) 0.6 L [place] # (Auto) 0.4 Eos # (Auto) 0.0 Baso # (Auto) 0.1 Abs Immat Gran (auto) 0.04 H Absolute Neuts (auto) 9.2 H Absolute Nucleated RBC 0.000 Nucleated RBC % (auto) 0.0 Smear Tech's Comments VERIFIED PT 12.4 INR 1.0 APTT 29.7 D-Dimer Sodium 140 Potassium 4.6 Chloride 105 Carbon Dioxide 24 Anion Gap 16 BUN 14 Creatinine 0.97 Estim Creat Clear Calc 60.7 Estimated GFR > 60 POC Glucose Random Glucose 144 H Calcium 8.7 Magnesium 2.2 Total Bilirubin 0.8 AST 32 ALT 21 Alkaline Phosphatase 120 H Lactate Dehydrogenase Troponin I High Sens Total Protein 7.1 Albumin 4.2 Procalcitonin COVID-19 ([facility]) COVID-19 Clin Com 03/10/20 03/10/20 03/10/20 13:44 13:44 13:44 WBC RBC Hgb Hct MCV MCH MCHC RDW Plt Count MPV Immature Gran % (Auto) Neut % (Auto) Lymph % (Auto) [place] % (Auto) Eos % (Auto) Baso % (Auto) Lymph # (Auto) [place] # (Auto) Eos # (Auto) Baso # (Auto) Abs Immat Gran (auto) Absolute Neuts (auto) Absolute Nucleated RBC Nucleated RBC % (auto) Smear Tech's Comments PT INR APTT D-Dimer 2355 Sodium Potassium Chloride Carbon Dioxide Anion Gap BUN Creatinine Estim Creat Clear Calc Estimated GFR POC Glucose Random Glucose Calcium Magnesium Total Bilirubin AST ALT Alkaline Phosphatase Lactate Dehydrogenase Troponin I High Sens 818.4 H Total Protein Albumin Procalcitonin COVID-19 ([facility]) Negative COVID-19 Clin Com See Note 03/10/20 03/10/20 03/10/20 13:44 13:44 14:22 WBC RBC Hgb Hct MCV MCH MCHC RDW Plt Count MPV Immature Gran % (Auto) Neut % (Auto) Lymph % (Auto) [place] % (Auto) Eos % (Auto) Baso % (Auto) Lymph # (Auto) [place] # (Auto) Eos # (Auto) Baso # (Auto) Abs Immat Gran (auto) Absolute Neuts (auto) Absolute Nucleated RBC Nucleated RBC % (auto) Smear Tech's Comments PT INR APTT D-Dimer Sodium Potassium Chloride Carbon Dioxide Anion Gap BUN Creatinine Estim Creat Clear Calc Estimated GFR POC Glucose 115 Random Glucose Calcium Magnesium Total Bilirubin AST ALT Alkaline Phosphatase Lactate Dehydrogenase 284 H Troponin I High Sens Total Protein Albumin Procalcitonin 0.03 COVID-19 ([facility]) COVID-19 Clin Com 03/10/20 14:40 WBC RBC Hgb Hct MCV MCH MCHC RDW Plt Count MPV Immature Gran % (Auto) Neut % (Auto) Lymph % (Auto) [place] % (Auto) Eos % (Auto) Baso % (Auto) Lymph # (Auto) [place] # (Auto) Eos # (Auto) Baso # (Auto) Abs Immat Gran (auto) Absolute Neuts (auto) Absolute Nucleated RBC Nucleated RBC % (auto) Smear Tech's Comments PT INR APTT D-Dimer Sodium Potassium Chloride Carbon Dioxide Anion Gap BUN Creatinine Estim Creat Clear Calc Estimated GFR POC Glucose 154 H Random Glucose Calcium Magnesium Total Bilirubin AST ALT Alkaline Phosphatase Lactate Dehydrogenase Troponin I High Sens Total Protein Albumin Procalcitonin COVID-19 ([facility]) COVID-19 Clin Com EKG shows sinus tachycardia with right bundle-branch block with S1 Q 3 TT pattern Chest x-ray shows no acute abnormality. CT brain did not show any acute intracranial hemorrhage Assessment and Plan (1) Cardiac arrest: Status: Acute patient presents with a syncopal episode and subsequently developed cardiac arrest with pulseless electrical activity. Clinical as well as echocardiographic and biochemical evidence suggestive of large pulmonary embolism. Patient continue to remain dependent on epinephrine with intermittent episodes of pulseless electrical activity requiring manual CPR. Patient was then given tPA as a last ditch effort in consultation with Dr. Moore who was present at the bedside. Discussion was made with the daughter with grim prognosis but she was agreeable to tPA treatment with all attendant risks. Despite after tPA patient remained dependent on vasopressor requiring again CPR. At that point time it felt to be futile to continue life-sustaining measures. Discussion again with the daughter and she agreed to discontinue CPR and treatment. Spent 1 hour at bedside managing his care along with the entire emergency room team.
--- NOTE | 2020-03-10 16:57 | PC.NURSE ---
[facility] contacted per protocol. spoke with jamaal . states they are excepting at this time and will call back.
--- NOTE | 2020-03-10 17:09 | PC.NURSE ---
see paper documentation. Pt was cardiac arrest, see arrest flowsheet.
--- NOTE | 2020-03-10 18:31 | PC.NURSE ---
[facility] called and states will try to call again they are awaiting his arrival in the [facility]
[2020-03-10] MEDS: Etomidate 20 MG/10 ML VIAL IVPUSH (18:32)
== END 2020-03-10 21:27 | disposition expired ==
PROVIDERS: Nurse Practitioner Primary Care; Emergency Provider Emergency Medicine
DX: I46.9 Cardiac arrest, cause unspecified (principal); R55 Syncope and collapse; Z20.828 Contact with and (suspected) exposure to other viral communicable diseases
CPT/HCPCS: 11104; 36415; 70450; 71045; 80053; 82947; 83615; 83735; 84145; 84484; 85025; 85379; 85610; 85730; 87635; 93005; 93306; 94002; 94003; 96374; 96375; 96376; 99284; 99285; J0171; J0330; J0461; J2270; J2405; J3010